=== PATIENT | female | born 1960 | race Caucasian/White ===

== ENCOUNTER → 2021-10-26 | Outpatient (CLI) | payer MEDICARE, MEDICAID ==
[~2021-10-26] VITALS: Ht 157.5 cm; Wt 73.4 kg
[~2021-10-26] MED LIST: LACO100 PO; LAMO100 PO; LEVO50 PO; OXCA300T57 PO; TOPI100T37 PO
[2021-10-26 11:25] VITALS: BP 136/62
== END | disposition home or self-care (01) ==
LOC: SRCNTR 10:47
PROVIDERS: ATTEND Internal Medicine
DX: N18.4 Chronic kidney disease, stage 4 (severe) (principal); E03.9 Hypothyroidism, unspecified; I77.89 Other specified disorders of arteries and arterioles; R56.9 Unspecified convulsions
CPT/HCPCS: G0463; Z7500